=== PATIENT | female | born 1950 | race Caucasian/White ===

== ENCOUNTER → 2019-01-23 09:42 | Outpatient (CLI) | payer MEDICARE, OTHER, SELFPAY ==
[2019-01-23 11:10] LABS: Ferritin 26.3 ng/mL (11.1-264)
== END ==
PROVIDERS: PCP Physician Assistant Medical; Visit Provider Nurse Practitioner Psychiatric/Mental Health
DX: F41.0 Panic disorder [episodic paroxysmal anxiety] (principal)
CPT/HCPCS: 36415; 82728

== ENCOUNTER → 2019-01-28 10:38 | Outpatient (CLI) | payer MEDICARE, OTHER, SELFPAY ==
--- NOTE | 2019-01-28 | DI.MRI.S_ITS ---
PROCEDURE: MR LUMBAR SPINE WO CON INDICATIONS: Intervertebral disc disorders with radiculopathy, TECHNIQUE: Noncontrast sagittal T1 spin echo and T2 fast echo, sagittal STIR, axial T1 and T2 fast spin echo through the lumbar spine. In cases with scoliosis, additional coronal T2 fast spin echo may be performed. COMPARISON: [facility], CR, XR LUMBAR SPINE 2 OR 3VW, 06/13/2015, 11:55. [facility], CR, L-SPINE 2-3 VIEWS, 08/15/2015, 8:35. FINDINGS: Image quality: Excellent. Alignment and Curvature: There is normal bony alignment. Bone Marrow: Marrow is of normal overall signal. No acute vertebral body compression fractures. Spinal Cord: Conus medullaris terminates at the L1 level. Visualized cord demonstrates normal signal and size. Paraspinous Soft Tissues: No paravertebral masses. T11-T12: Imaged in sagittal plane. Mild diffuse disc bulge. No significant canal stenosis. T12-L1: No canal stenosis or foraminal stenosis. L1-L2: Mild chronic disc and loss. Mild disc bulge. Mild facet hypertrophy. No canal stenosis. Mild left foraminal stenosis. L2-L3: No canal stenosis or foraminal stenosis. Mild facet hypertrophy. L3-L4: Minimal disc bulge. Facet and ligament hypertrophy. Mild canal stenosis. No foraminal stenosis. L4-L5: Minimal disc bulge. Bilateral facet and ligament hypertrophy. Mild bilateral foraminal stenosis. L5-S1: Right paracentral annulus tear. Mild diffuse disc bulge. No canal stenosis or foraminal stenosis. Bilateral facet hypertrophy, right greater than left. IMPRESSION: 1. Mild multifactorial canal stenosis at L3-L4 2. Multilevel facet arthropathy. 3. At L5-S1, there is a right paracentral annulus tear with mild diffuse disc bulge. Dictated by: Emiliano Olivera M.D. on 01/30/2019 at 8:47 Approved by: Emiliano Olivera M.D. on 01/30/2019 at 8:58
== END ==
PROVIDERS: PCP Physician Assistant Medical; Visit Provider Orthopaedic Surgery Orthopaedic Surgery of the Spine
DX: M48.061 Spinal stenosis, lumbar region without neurogenic claudication (principal)
CPT/HCPCS: 72148

== ENCOUNTER → 2021-12-10 09:08 | Outpatient (CLI) | payer MEDICARE, OTHER, SELFPAY ==
--- NOTE | 2021-12-10 09:11 | DI.RAD.S_ITS ---
PROCEDURE: FL BARIUM SWALLOW W SPEECH INDICATIONS: COUGH AND GERD COMPARISON: None. TECHNIQUE: Examination was conducted in conjunction with speech pathology per standard protocol. In the lateral projection, filming was performed of the patient swallowing. AP projection filming may also be performed with patient swallowing. COMPARISON: FINDINGS: Function: The oral preparatory phase appears normal, with proper containment. The subsequent oral propulsive phase, pharyngeal phase, and esophageal phase of swallowing also appear normal with all proffered substances. No laryngotracheal penetration or aspiration. No pathologic vallecular pooling. Morphology: No cricopharyngeal bar is identified. No cervical esophageal webs. No Zenker's diverticulum. No strictures. IMPRESSION: Normal examination. Dictated by: Rosalinda Gonzalez MD, PhD on 12/10/2021 at 10:38 Approved by: Rosalinda Gonzalez MD, PhD on 12/10/2021 at 10:38
--- NOTE | 2021-12-10 15:28 | ST.SWALLOW ---
Visit Care Team Role Provider Type Nataliia Boladn PA-C Attending Provider Non-Staff Primary Care Provider Referring Provider Specialty: Medical Address: [address] [place] [address] [address], [place], [address] Email: Modified Barium Swallow Study [employer] Clinical Instructor Line Start: 12/10/21 15:21 Freq: Status: Active Protocol: Document 12/10/21 15:22 IMELDA (Rec: 12/10/21 15:23 [email or web address] [id number]) Clinical Instructor Signature Clinical Instructor Clinical Instructor Yes [employer] Modified Barium Swallow Study Start: 12/10/21 09:13 Freq: Status: Active Protocol: Document 12/10/21 09:13 EK (Rec: 12/10/21 09:15 EK [id number]) Modified Barium Swallow Study Total Time Visit Start Time 09:25 Visit Stop Time 09:55 Total Visit Minutes 30 Referral Referring Physician Nataliia Boland PA-C Reason for Referral GERD/Cough Setting Setting Outpatient Care Patient Information Identification Type Name Patient History Pt is a 71-year-old female who complains of an ongoing cough and occasional choking while eating. Pt has a diagnosis of GERD and reported she has asthma, allergies, and post- nasal drip. Pt reported that her cough began in June 2021 and lasts throughout the day; she reported her choking/ food feeling stuck symptom has been going on for years. She indicated that the choking primarily occurs with dry textures such as bread and czech fries. Pt stated that a CT scan from last week showed spots in her lungs but her only symptom has been coughing . Subjective Observations Pt arrived on time and unaccompanied. Assessment conducted and note written by CONTIN[employer]OUS [employer]ING [employer]ACHINE [employer]ER information technology internship Katerin Guevara under CONTINUOUS MINING MACHINE [employer]AL MINER supervision. Patient Positioning Position View Lat-A/P Imaging Lateral View Textures Administered Trials Presented Thin Liquid via Spoon,Thin Liquid via Cup,[place] Liquid via Spoon,[place] Liquid via Cup,Honey Liquid via Spoon, Dysphagia Blenderized Textures ,Regular Textures Oral Phase Source: MBSIMP (TM) (C) Bolus Specific Scoring Grid Lip Closure No Impairment (WNL) Tongue Control During Bolus Hold No Impairment (WNL) Bolus Prep/Mastication No Impairment (WNL) Bolus Transport/Lingual Motion No Impairment (WNL) A/P Lingual Propulsion Delay No Oral Residue WFL Residue Clearing No Impairment (WNL) Nasal Regurgitation No Additional Oral Phase Observations During oral mechanism exam it was noted that the pt has several implants and dental discoloration but overall, her structure and musculature is WNL for her age. Mastication was timely and efficient but posterior oral escape was noted during trials . Slight oral residue was noted with thicker consistencies which cleared with subsequent swallows. Pharyngeal Phase Source: MBSIMP (TM) (C) Bolus Specific Scoring Grid Delayed Initiation of Pharyngeal Swallow Yes Soft Palate Elevation No Impairment (WNL) Tongue Base Strength/Range of Motion Mild Impairment Residue Along the Tongue Base Yes: Trace amount Clearance of Residue Along Tongue Base WFL Laryngeal Elevation No Impairment (WNL) Anterior Hyoid Movement WFL Epiglottic Range of Motion No Impairment (WNL) Vallecular Residue Yes: Trace amount Clearance of Vallecular Residue No Impairment (WNL) Laryngeal Vestibular Closure No Impairment (WNL) Pharyngeal Stripping Wave No Impairment (WNL) Pharyngeal Contraction No Impairment (WNL) Posterior Pharyngeal Wall Residue No Upper Esophageal Sphincter Opening No Impairment (WNL) Residue in the Pyriform Sinuses Yes: Trace amount Clearance of Residue in the Pyriform No Impairment (WNL) Sinuses Esophageal Clearance Upright Position No Impairment (WNL) Pharyngoesophageal Backflow Observed No Additional Pharyngeal Phase Observations Premature spillage prior to the initiation of the swallow trigger was noted, primarily to the level of the vallecula but also to the pyriform sinuses with nectar thick liquid. This is due to a delayed swallow trigger and mild base of tongue weakness. No penetration/aspiration was noted and the rest of the pt's swallow appeared to be WNL for her age. Trace residue was noted along the tongue base, vallecula, and pyriform sinuses however, this residue cleared quickly upon subsequent swallows. A/P View Textures Administered Trials Presented [place] Liquid via Cup, Dysphagia Blenderized Textures ,Barium Tablet A/P View Observations Pharyngeal Contraction No Impairment (WNL) Esophageal Function No Impairment (WNL) Esophageal Clearance Upright Position No Impairment (WNL) Additional Observations Presented trials passed to the stomach without hesitation. Clinical Impressions Dysphagia Type WNL Findings Overall, swallow function was WNL for pt's age. Suspect symptoms of coughing and feeling of something in the throat are related to GERD and post-nasal drip. Recommend GI consult to further assess GERD. Prior to consult, GERD precautions such as eating at a 90 degree angle, staying upright for 30 minutes after eating, and alternating liquids and solids are recommended. Also recommend minimizing distractions while eating and taking smaller sips /bites to reduce choking episodes. Patient Appropriate for Therapy No Recommendations Diet Diet Order Regular Aspiration Precautions Recommended Precautions Upright at 90 Degrees, Alternate Liquids/Solids,Small Bites/Sips Treatment Plan Recommended Referrals GI Consult Compensatory Strategies Recommendations Sitting Upright (90 deg) Placement Recommendation After Discharge Home
== END ==
PROVIDERS: PCP Physician Assistant Medical; Referring Provider Physician Assistant Medical; Visit Provider Physician Assistant Medical
DX: K21.9 Gastro-esophageal reflux disease without esophagitis; R05.9 Cough, unspecified
CPT/HCPCS: 74230; 92611

== ENCOUNTER 2023-11-10 12:29 | Outpatient (CLI) | payer MEDICARE, OTHER, SELFPAY ==
[2023-11-10] VITALS (9 sets, daily range): BP systolic 141–189; BP diastolic 56–79; PULSE 63–70; RESP 10–17; TEMP 35.9; O2SAT 98–100
--- NOTE | 2023-11-10 13:00 | DI.RAD.S_ITS ---
PROCEDURE: PAIN SI JOINT INJECTION MALLY INDICATIONS: SI JOINT DYSFUNCTION COMPARISON: None. FINDINGS: Fluoroscopic spot filming was performed to verify placement of spinal needles at the bilateral SI joints level(s), as labeled on the films. Appropriate location(s) of the needle tip(s) was confirmed by injection of iodinated contrast. IMPRESSION: Intraoperative guidance provided. Dictated by: Amador Lombardo M.D. on 11/10/2023 at 16:47 Approved by: Amador Lombardo M.D. on 11/10/2023 at 17:00
[2023-11-10] MEDS: MIDAZOLAM 2 MG/2 ML VIAL 1 MG IV (13:09)
[2023-11-10] MEDS: iopamidoL 15 ML VIAL 3 ML INJ (13:13)
[2023-11-10] MEDS: DEXAMETHASONE 10 MG/ML VIAL 20 MG INJ (13:13)
[2023-11-10] MEDS: BUPIVACAINE 0.25% (PF) VIAL 5 ML INJ (13:13)
--- NOTE | 2023-11-10 16:55 | P.PCN_ITS ---
Date/Time/Diagnoses Date of procedure: 11/10/23 Time of procedure: 13:00 Procedure Notes Physician: Efra Roberson Total Fluoroscopy time (seconds): 21 Total sedation minutes: 10 Procedure in detail & Post-procedure care: Bilateral Sacroiliac Joint Injection Indications: Dafne is presenting for treatment of SI joint dysfunction with low back/buttock pain. Preoperative diagnosis: Bilateral SI joint dysfunction Postoperative diagnosis: Same Focused Examination: Ax3 Mood and affect are normal Vital Signs: VSS ASA: 2 Consent: Following review of allergies and potential side effects/complications, including, but not necessarily limited to, infection, allergic reaction, local tissue breakdown, stroke, temporary or permanent nerve injury, paralysis, and possible , the patient indicated that they understood and agreed to proceed.? An informed consent document was signed by the patient, witnessed by a nurse and placed in the patient's chart.? Additionally, other treatment options including medications and physical therapy were reviewed with the patient. All questions were answered. Site was then marked. Anesthesia: After review of previous anesthetic history and IV conscious sedation, the patient was deemed safe to proceed with today's procedure with IV conscious sedation. IV sedation was accomplished with midazolam 1 mg administered by the RN after order by Dr. Roberson. Sedation was titrated to patient comfort during the course of the procedure. Patient remained responsive to all verbal commands. Position: Prone Monitoring: NIBP, Pulse oximetry, 3 lead EKG Needle used: 22 ga, 3.5 inch spinal Contrast: 2 mL Isovue M-300 Injectate: Dexamethasone 7.5 mg with 1% lidocaine 2 mL per site Technique: The skin was prepped with chloraprep and then draped in a sterile fashion. Time out was performed as per protocol. Oxygen applied via NC. Skin and subcutaneous structures of the needle entry site was then infiltrated with 5 mL of lidocaine 1%. Under AP and lateral fluoroscopic control, the spinal needle was guided into the right sacroiliac joint. 1 mL contrast was injected and was consistent with intra-articular placement. There was no evidence for intravascular uptake. After negative aspiration, the above-mentioned injectate was then slowly administered and the needle withdrawn. The patient expressed no unusual discomfort or paresthesias during the injection. Skin and subcutaneous structures of the needle entry site was then infiltrated with 5 mL of lidocaine 1%. Under AP and lateral fluoroscopic control, the spinal needle was guided into the left sacroiliac joint. 1 mL contrast was injected and was consistent with intra-articular placement. There was no evidence for intravascular uptake. After negative aspiration, the above-mentioned injectate was then slowly administered and the needle withdrawn. The patient expressed no unusual discomfort or paresthesias during the injection.Band-Aids applied to injection sites. EBL: less than 1 ml Complications: None Post Procedure: Patient was taken to the recovery and monitored. The patient was provided a Pain Log to continue to record the patient's response to the target- specific procedure prior to the patient's follow-up visit with the referring physician. Patient was stable upon discharge. Detailed post procedure instructions were provided. Patient was asked to call in the event of worsening pain, fever, weakness, numbness or bladder or bowel incontinence.
== END 2023-11-10 13:42 | disposition home or self-care (01) ==
LOC: RAD 12:29
PROVIDERS: PCP Physician Assistant Medical; Referring Provider Anesthesiology; Visit Provider Anesthesiology
DX: M53.3 Sacrococcygeal disorders, not elsewhere classified (principal)
CPT/HCPCS: 27096; 99152; J1100; J2250; J3490

== ENCOUNTER → 2024-03-13 10:31 | Outpatient (CLI) | payer MEDICARE, OTHER, SELFPAY ==
--- NOTE | 2024-03-13 10:32 | DI.RAD.S_ITS ---
PROCEDURE: XR LUMBAR SPINE MIN 4V INDICATIONS: BACK PAIN TECHNIQUE: 5 views of the lumbar spine were acquired, including bilateral oblique views. COMPARISON: None. FINDINGS: Bones: There is trace anterolisthesis of L4 on L5. This is probably degenerative. Vertebral body heights are well maintained. [id number] spondylotic changes. Oblique views are obscured by bowel gas, no definite pars defects. Soft tissues: Increased fecal loading. Partially seen hip arthrosis. IMPRESSION: [id number] spondylosis. If there is high concern for further derangement, consider MRI evaluation. Dictated by: Tapan English M.D. on 03/13/2024 at 11:25 Approved by: Tapan English M.D. on 03/13/2024 at 11:26
--- NOTE | 2024-03-13 10:32 | DI.RAD.S_ITS ---
PROCEDURE: XR HIP W PEL IF DONE MALLY MIN 4V INDICATIONS: BILATERAL HIP PAIN TECHNIQUE: AP pelvis with lateral view(s) of the bilateral hip(s). COMPARISON: None. FINDINGS: Bones: Mild bilateral arthrosis. No acute displaced fracture or dislocation Soft tissues: No suspicious calcifications. IMPRESSION: Mild bilateral arthrosis. No acute radiographic abnormality. If there is high concern for further derangement, consider MRI evaluation. Dictated by: Tapan English M.D. on 03/13/2024 at 11:24 Approved by: Tapan English M.D. on 03/13/2024 at 11:24
== END ==
PROVIDERS: PCP Physician Assistant Medical; Referring Provider Physical Medicine & Rehabilitation; Visit Provider Physical Medicine & Rehabilitation
DX: M70.61 Trochanteric bursitis, right hip (principal); M70.62 Trochanteric bursitis, left hip; M25.551 Pain in right hip; M25.552 Pain in left hip; M47.26 Other spondylosis with radiculopathy, lumbar region; M16.0 Bilateral primary osteoarthritis of hip; M54.50 Low back pain, unspecified
CPT/HCPCS: 72110; 73522

== ENCOUNTER 2024-04-25 12:27 | Outpatient (CLI) | payer MEDICARE, OTHER, SELFPAY ==
[2024-04-25] VITALS (9 sets, daily range): BP systolic 124–169; BP diastolic 58–78; PULSE 68–76; RESP 14–20; TEMP 36.5; O2SAT 96–100
--- NOTE | 2024-04-25 12:33 | DI.RAD.S_ITS ---
PROCEDURE: PAIN L INTERLAMINAR/CAUDAL INJ INDICATIONS: para Right L5/S1 TL GIBRAN COMPARISON: None. FINDINGS: Fluoroscopic spot filming was performed to verify placement of spinal needles at the L5-S1 level(s), as labeled on the films. Appropriate location(s) of the needle tip(s) was confirmed by injection of iodinated contrast. IMPRESSION: L5-S1 injection please see operative note for full details. Dictated by: Tapan English M.D. on 04/25/2024 at 17:03 Approved by: Tapan English M.D. on 04/25/2024 at 17:03
[2024-04-25] MEDS: MIDAZOLAM 2 MG/2 ML VIAL IV (13:30)
[2024-04-25] MEDS: BUPIVACAINE 0.25% (PF) VIAL 2 ML INJ (13:38)
[2024-04-25] MEDS: BETAMETHASONE 30 MG/5 ML MDV 12 MG INJ (13:38)
[2024-04-25] MEDS: DEXAMETHASONE 10 MG/ML VIAL INJ (13:38)
[2024-04-25] MEDS: iopamidoL 15 ML VIAL 3 ML INJ (13:38)
--- NOTE | 2024-04-25 13:54 | P.PCN_ITS ---
Date/Time/Diagnoses Date of procedure: 04/25/24 Time of procedure: 13:55 Pre-procedure diagnosis: 1. HNP WITH RADICULAR FEATURES, 2. MULTILEVEL CENTRAL STENOSIS, Post-procedure diagnosis: same Procedure Notes Procedure: 1. FLUOROSCOPICALLY GUIDED CONTRAST CONTROLLED INTERLAMINAR EPIDURAL STEROID INJECTION - L5/S1 Indications: Dafne is referred by CESAR Boland for treatment of Bilateral Foraminal Stenosis L>R LE symptoms. Physician: Bhavin Elizondo Total Fluoroscopy time (seconds): 7 Total sedation minutes: 12 Complications: none Procedure in detail & Post-procedure care: FINDINGS Multilevel Central Spinal Stenosis with Nerve Root Compression DESCRIPTION OF PROCEDURE Fluoroscopically guided, contrast-controlled L5/S1 translaminar epidural steroid injection. Following review of allergy and review of potential side effects and complications, including, but not necessarily limited to, infection, allergic reaction, local tissue breakdown, temporary as well as permanent nerve injury, paralysis, stroke and possible , the patient indicated that the patient understood and agreed to proceed. An informed consent document was signed by the patient, witnessed by a nurse, and placed in the patient's chart. Additionally, other treatment options including modalities, medications, and physical therapy were reviewed with the patient. After review of previous anaesthesic history and IV conscious sedation the patient was deemed safe to proceed with today?s procedure with IV conscious sedation as ASA class II designation. Safety time-out was performed to confirm patient ID, procedure to be performed and site of procedure. IV sedation was accomplished with a combination of 2mg of Versed administered by the RN after DO order, titrated to patient comfort during the course of the procedure while the patient remained responsive to all verbal commands. In the prone position, following sterile prep and drape of the lumbar region, the L5/S1 translaminar space was identified fluoroscopically. The skin was anesthetized via a 25-gauge, 1.5-inch needle with 1% lidocaine solution. At this point, a 22-gauge short bevel spinal needle was atraumatically introduced and advanced under fluoroscopic guidance into the region of the L5/S1 translaminar space. Depth was confirmed on lateral view. Radiological data, including multiple fluoroscopic views of the lumbar spine, reveal a spinal needle at the L5/S1 translaminar space. Lateral views then show placement of the needle in the epidural space. Subsequent views show contrast material flowing superiorly and inferiorly in the epidural space. No vascular or intrathecal uptake is observed. At this point, using loss of resistance technique with saline and air, the epidural space was entered. This was confirmed following negative aspiration with injection of approximately 1.5cc of Isovue 200, showing excellent epidural flow without vascular or intrathecal uptake. At this point, 1 cc of 1% lidocain e solution combined with 2cc or 10mg of dexamethasone and 6mg of betamethasone was injected without incident. The patent tolerated the procedure without signs of symptoms of complications prior to transfer to the recovery area for further monitoring. The patient was then transferred to the recovery area where they were observed for an appropriate period of time after the injection. The patient reported a VAS score of 6 prior to the procedure and a post-procedure VAS of 0. POST OP INSTRUCTIONS The patient was provided a Pain Log to continue to record their response to the target-specific procedure prior to follow-up visit with their referring physician. Additionally, specific post-injection care instructions and a contact number to our office were provided if concerns arise regarding possible complications associated with the procedure are suspected.
== END 2024-04-25 14:15 | disposition home or self-care (01) ==
PROVIDERS: PCP Physician Assistant Medical; Referring Provider Physical Medicine & Rehabilitation; Visit Provider Physical Medicine & Rehabilitation
DX: M51.17 Intervertebral disc disorders with radiculopathy, lumbosacral region (principal); M48.07 Spinal stenosis, lumbosacral region
CPT/HCPCS: 62323; 99152; J0702; J1100; J2250; J3490

== ENCOUNTER 2024-08-17 08:20 | Outpatient (CLI) | payer MEDICARE, OTHER, SELFPAY ==
[2024-08-17] VITALS (8 sets, daily range): BP systolic 128–165; BP diastolic 60–80; PULSE 64–75; RESP 16–19; TEMP 36.1; O2SAT 96–100
[2024-08-17] MEDS: MIDAZOLAM 2 MG/2 ML VIAL IV (09:00)
[2024-08-17] MEDS: BUPIVACAINE 0.5% (PF) 10 ML VIAL 5 ML INJ (09:08)
[2024-08-17] MEDS: LIDOCAINE 1% 20 ML 5 ML INJ (09:08)
[2024-08-17] MEDS: iopamidoL 15 ML VIAL 3 ML INJ (09:08)
--- NOTE | 2024-08-17 09:23 | PM.PROC.IR.1 ---
Date/Time/Diagnoses Date of procedure: 08/17/24 Time of procedure: 09:24 Pre-procedure diagnosis: 1. FACET ARTHROPATHY Post-procedure diagnosis: same Procedure Notes Procedure: 1. BILATERAL- L4, L5 and S1 DIAGNOSTIC MB BLOCKS with LA Anesthetic Indications: Dafne is referred by CESAR Boland for treatment of Bilateral Axial LBP. Physician: Bhavin Elizondo Total Fluoroscopy time (seconds): 6 Total sedation minutes: 16 Complications: none Procedure in detail & Post-procedure care: DESCRIPTION OF PROCEDURE Fluoroscopically guided, contrast-controlled bilateral L4, L5 and S1 medial branch blocks with 0.5cc of 0.5% Marcaine. Following review of allergy and review of potential side effects and complications, including, but not necessarily limited to, infection, allergic reaction, local tissue breakdown, nerve injury, paralysis, stroke and possible , the patient indicated that the patient understood and agreed to proceed. An informed consent document was signed by the patient, witnessed by a nurse, and placed in the patient's chart. After review of previous anaesthesic history and IV conscious sedation the patient was deemed safe to proceed with today's procedure with IV conscious sedation as ASA class II designation. Safety time-out was performed to confirm patient ID, procedure to be performed and site of procedure. IV sedation was accomplished with a combination of 2mg of Versed was administered by the RN after DO order, titrated to patient comfort during the course of the procedure while the patient remained responsive to all verbal commands In the prone position, following sterile prep and drape of the lumbar region, the right L4, L5 and S1 anatomical location of the medial branch of the dorsal ramus was identified fluoroscopically. Subsequently an anesthetic skin wheal using 1% lidocaine solution was initiated at each of the anatomical spots. Subsequently then a 22-gauge 3.5-inch spinal needle was atraumatically introduced and advanced under fluoroscopic guidance at each of the corresponding sites at the right L4, L5 and S1 MB. After negative aspiration, 0.2cc of Isovue 200 was injected, confirming placement without vascular or intrathecal uptake. Subsequently then 0.5cc of 0.5% Marcaine solution was injected at each of the corresponding sites at the right L4, L5 and S1 medial branch locations. The identical procedure was replicated on the left. The patient tolerated the procedure well without signs or symptoms of complications prior to transfer to the recovery area continued monitoring without incident. Post-procedure, the patient was monitored initiating provocative activities to measure the amount of relief from block of the facetogenic pain. The patient reported a VAS of 7 prior to the procedure and a post-procedure VAS of 1. It has been a pleasure to assist in the diagnostic and therapeutic care of your patient. POST OP INSTRUCTIONS The patient was provided with a Pain Log to complete over the next several hours and subsequent days prior to the patient's follow up with the ordering physician. If the patient has director of regional sales relief to the solution applied, then they may be a candidate for medial branch rhizotomy. The patient is aware, was provided, once again, with a Pain Log and will follow up with the referring physician for review and clinical correlation
== END 2024-08-17 09:37 | disposition home or self-care (01) ==
PROVIDERS: PCP Physician Assistant Medical; Referring Provider Physical Medicine & Rehabilitation; Visit Provider Physical Medicine & Rehabilitation
DX: M47.816 Spondylosis without myelopathy or radiculopathy, lumbar region (principal); M47.817 Spondylosis without myelopathy or radiculopathy, lumbosacral region
CPT/HCPCS: 64493; 64494; 99152; J2250

== ENCOUNTER 2024-12-05 12:30 | Outpatient (CLI) | payer MEDICARE, OTHER, SELFPAY ==
[2024-12-05] VITALS (7 sets, daily range): BP systolic 123–152; BP diastolic 56–75; PULSE 61–64; RESP 10–16; TEMP 36.2; O2SAT 95–100
[2024-12-05] MEDS: MIDAZOLAM 2 MG/2 ML VIAL IV (13:51)
[2024-12-05] MEDS: LIDOCAINE 1% 20 ML 5 ML INJ (13:55)
[2024-12-05] MEDS: LIDOCAINE 2% INJ MDV 20ML 5 ML INJ (13:56)
--- NOTE | 2024-12-05 14:13 | PM.PROC.IR.1 ---
Date/Time/Diagnoses Date of procedure: 12/05/24 Time of procedure: 14:13 Pre-procedure diagnosis: 1. FACET ARTHROPATHY Post-procedure diagnosis: same Procedure Notes Procedure: 1. BILATERAL- L4, L5 and S1 DIAGNOSTIC MB BLOCKS with SA Anesthetic Indications: [facility] is referred by TOMMIE Bolnad for treatment of Bilateral Axial LBP. Physician: Bhavin Elizondo Total Fluoroscopy time (seconds): 14 Total sedation minutes: 16 Complications: none Procedure in detail & Post-procedure care: DESCRIPTION OF PROCEDURE Fluoroscopically guided, contrast-controlled bilateral L4, L5 and S1 medial branch blocks with 0.5cc of 2% Lidocaine. Following review of allergy and review of potential side effects and complications, including, but not necessarily limited to, infection, allergic reaction, local tissue breakdown, nerve injury, paralysis, stroke and possible , the patient indicated that the patient understood and agreed to proceed. An informed consent document was signed by the patient, witnessed by a nurse, and placed in the patient's chart. After review of previous anaesthesic history and IV conscious sedation the patient was deemed safe to proceed with today's procedure with IV conscious sedation as ASA class II designation. Safety time-out was performed to confirm patient ID, procedure to be performed and site of procedure. IV sedation was accomplished with a combination of 2mg of Versed was administered by the RN after DO order, titrated to patient comfort during the course of the procedure while the patient remained responsive to all verbal commands In the prone position, following sterile prep and drape of the lumbar region, the right L4, L5 and S1 anatomical location of the medial branch of the dorsal ramus was identified fluoroscopically. Subsequently an anesthetic skin wheal using 1% lidocaine solution was initiated at each of the anatomical spots. Subsequently then a 22-gauge 3.5-inch spinal needle was atraumatically introduced and advanced under fluoroscopic guidance at each of the corresponding sites at the right L4, L5 and S1 MB. After negative aspiration, 0.2cc of Isovue 200 was injected, confirming placement without vascular or intrathecal uptake. Subsequently then 0.5cc of 2% Lidocaine solution was injected at each of the corresponding sites at the right L4, L5 and S1 medial branch locations. The identical procedure was replicated on the left. The patient tolerated the procedure well without signs or symptoms of complications prior to transfer to the recovery area continued monitoring without incident. Post-procedure, the patient was monitored initiating provocative activities to measure the amount of relief from block of the facetogenic pain. The patient reported a VAS of 7 prior to the procedure and a post-procedure VAS of 1. It has been a pleasure to assist in the diagnostic and therapeutic care of your patient. POST OP INSTRUCTIONS The patient was provided with a Pain Log to complete over the next several hours and subsequent days prior to the patient's follow up with the ordering physician. If the patient has grounding engineer relief to the solution applied, then they may be a candidate for medial branch rhizotomy. The patient is aware, was provided, once again, with a Pain Log and will follow up with the referring physician for review and clinical correlation
== END 2024-12-05 14:23 | disposition home or self-care (01) ==
LOC: RAD 12:31
PROVIDERS: PCP Physician Assistant Medical; Referring Provider Physical Medicine & Rehabilitation; Visit Provider Physical Medicine & Rehabilitation
DX: M47.816 Spondylosis without myelopathy or radiculopathy, lumbar region (principal); M47.817 Spondylosis without myelopathy or radiculopathy, lumbosacral region
CPT/HCPCS: 64493; 64494; 99152; J2250

== ENCOUNTER 2025-03-27 10:44 | Outpatient (CLI) | payer MEDICARE, OTHER, SELFPAY ==
[2025-03-27] VITALS (15 sets, daily range): BP systolic 62–192; BP diastolic 46–92; PULSE 61–67; RESP 12–18; TEMP 36.9; O2SAT 95–100
[2025-03-27] MEDS: MIDAZOLAM 2 MG/2 ML VIAL IV ×2 (12:04→12:27)
[2025-03-27] MEDS: LIDOCAINE 1% (PF) 5 ML INJ (12:08)
[2025-03-27] MEDS: fentaNYL 100 MCG/2 ML INJ 50 MCG IV (12:14)
--- NOTE | 2025-03-27 12:58 | P.PCN_ITS ---
Date/Time/Diagnoses Date of procedure: 04/11/25 Time of procedure: 12:59 Pre-procedure diagnosis: 1. RECALCITRANT FACET ARTHROPATHY Post-procedure diagnosis: same Procedure Notes Procedure: 1. BILATERAL L4 AND L5 MEDIAL BRANCH RADIOFREQUENCY NEUROTOMY AND S1 DORSAL RAMUS BRANCH RADIOFREQUENCY NEUROTOMY Indications: [facility]ne is referred by CESAR Boland for treatment of facet arthropathy. Physician: Bhavin Elizondo Total Fluoroscopy time (seconds): 23 Total sedation minutes: 45 Complications: none Procedure in detail & Post-procedure care: DESCRIPTION OF PROCEDURE Bilateral L4 and L5 medial branch radiofrequency neurotomy and bilateral S1 dorsal ramus radiofrequency neurotomy under fluoroscopy with conscious sedation. The patient is well known to this clinic having undergone previous facet injections with good but temporary relief. The patient has experienced appropriate, concordant relief with previous facet and median branch blocks but the patient's pain has been recalcitrant to further conservative measures. Therefore, based upon the patient's relief and persistent symptoms, the patient is considered an appropriate candidate for facet rhizotomy. All of the patient's questions regarding the risks versus benefits of the procedure, including, but not limited to, bleeding, infection, temporary as well as lasting nerve injury, paralysis, stroke, and , as well treatment alternatives were answered to satisfaction. After obtaining informed consent, denial of pertinent drug allergies, as well as being made aware of the potential risks of bleeding, infection, spinal cord trauma, paralysis, temporary and permanent nerve damage, seizure, stroke, and possible , the patient was brought to the fluoroscopy suite and positioned prone on the fluoroscopy table. The lumbar region was prepped in usual sterile fashion and covered with a fenestrated drape in the usual sterile fashion. Appropriate monitors applied including pulse oximeter, pulse, and blood pressure for regular monitoring throughout the procedure. After review of previous anaesthesic history and IV conscious sedation the patient was deemed safe to proceed with today's procedure with IV conscious sedation as ASA class II designation. Safety time-out was performed to confirm patient ID, procedure to be performed and site of procedure. IV sedation was accomplished with a combination of 4mg of Versed and 50mcg of Fentanyl administered by the RN after DO order, titrated to patient comfort during the course of the procedure while the patient remained responsive to all verbal commands. After local infiltration using 1% lidocaine, under fluoroscopic guidance, a 10- cm RF insulated needle with a 10-mm active tip was positioned parallel to the junction of the right sacral ala and the superior articulating process where the S1 dorsal ramus resides. Needle placement was confirmed with motor stimulation of .5v on the right which produced local stimulation without radicular component. The stimulation was then increased to 2v with, once again, only local multifidus stimulation without radicular component. The needle was then removed and the identical procedure was performed along the length of the right L5 medial branch with motor stimulation at .7v on the right. The identical procedure was once again performed along the length of the right L4 medial branch with motor stimulation of .5v on the right. The medial branches were then anesthetised with 0.5% Marcaine. This was then followed by two discreet lesions performed at 80 degrees Celsius for 90 seconds each. The identical procedure was repeated on the left. The patient tolerated the procedure well without signs or symptoms of complications prior to transfer to the recovery area continued monitoring without incident. The patient was then transferred to the recovery area where they were observed for an appropriate period of time after the injection. The patient reported a VAS score of 7 prior to the procedure and a post-procedure VAS of 1. POST OP INSTRUCTIONS The patient was provided a Pain Log to continue to record the patient's response to the target-specific procedure prior to the patient's follow-up visit with the referring physician. Additionally, specific post-injection care instructions and a contact number to our office were provided if concerns arise regarding possible complications associated with the procedure are suspected.
== END 2025-03-27 13:14 | disposition home or self-care (01) ==
LOC: RAD 10:45
PROVIDERS: PCP Physician Assistant Medical; Referring Provider Physician Assistant Medical; Visit Provider Physical Medicine & Rehabilitation
DX: M47.816 Spondylosis without myelopathy or radiculopathy, lumbar region (principal); M47.817 Spondylosis without myelopathy or radiculopathy, lumbosacral region
CPT/HCPCS: 64635; 64636; 99152; 99153; J2250; J3010